=== PATIENT | male | born 1985 | race African-American/Black ===

== ENCOUNTER → 2018-10-24 11:06 | Outpatient (CLI) | payer MEDICAID, SELFPAY ==
[2018-10-24 10:35] VITALS: BMI 23.3
[2018-10-24 12:50] LABS: Absolute Lymphocyte Count 1.66 X10^3/ul (0.83-4.51); Absolute Neutrophil Count 2.7 X10^3/uL (2.0-7.7); Basophil# 0.03 X10^3/uL; Basophil% 0.5 % (0-1); Eosinophil# 0.65 X10^3/uL; Eosinophils% 11.7 % (0-5); Hematocrit 44.8 % (40-54); Hemoglobin 14.9 g/dl (13.0-16.5); Lymphocyte # 1.66 X10^3/ul (4.0); Lymphocyte % 29.8 % (19-41); Mean Corp Hgb Conc 33.3 g/gl (32-36); Mean Corpuscular Hgb 26.1 pg (27.0-32.0); Mean Corpuscular Volume 78.5 fL (80-94); Mean Platelet Vol. 9.5 fl (6.2-12.0); Monocyte# 0.58 X10^3/uL; Monocyte% 10.4 % (0-10); Neutrophil # 2.65 X10^3/uL (2.7-7.7); Neutrophil % 47.6 % (47-70); Platelet Count 235 K/mm3 (150-450); RBC Distribution Width CV 16.3 % (11.6-14.6); RBC Distribution Width SD 46.6 fl (35.1-43.9); Red Blood Count 5.71 M/mm3 (4.6-6.2); White Blood Count 5.6 K/mm3 (4.4-11.0)
[2018-10-24 12:55] LABS: POSITIVE COUNT NO; POSITIVE DIFFERENTIAL NO; POSITIVE MORPHOLOGY NO
[2018-10-24 13:11] LABS: ALB/GLOB Ratio 1.3 RATIO (0.9-2.4); AST(SGOT) 20 U/L (15-37); Alanine Aminotransfer ALT/SGPT 24 U/L (16-61); Albumin, Serum 4.2 g/dL (3.2-5.0); Alkaline Phosphatase 70 U/L (45-117); Anion Gap 5 (5-15); BUN 9 mg/dL (7-18); BUN/Creat Ratio 9.6 RATIO (10-20); Calcium,Total 8.9 mg/dL (8.5-10.1); Chloride 108 mmol/L (98-107); Creatinine, Serum 0.94 mg/dL (0.70-1.30); EST Glomerular Filtration Rate 97 mL/min (>60); Est Glom Filt Rate - Afr Amer 117 mL/min (>60); Globulin 3.2 g/dL (2.2-4.2); Glucose 96 mg/dL (74-106); Potassium 3.8 mmol/L (3.5-5.1); Protein, Total 7.4 g/dL (6.4-8.2); Sodium Level 139 mmol/L (136-145)
[2018-10-24 13:49] LABS: HIV - WCH Non-Reactive (Nonreactive)
== END ==
LOC: EPLAB 11:06 → BIMLAB 10-27 08:54
PROVIDERS: Family Provider Internal Medicine; PCP Internal Medicine; Visit Provider Internal Medicine
DX: Z20.6 Contact with and (suspected) exposure to human immunodeficiency virus [HIV] (principal); R10.9 Unspecified abdominal pain; J45.909 Unspecified asthma, uncomplicated
CPT/HCPCS: 36415; 80053; 85025; 86703

== ENCOUNTER → 2022-05-25 | Outpatient (CLI) | payer MEDICAID, SELFPAY ==
[2022-05-25 14:34] LABS: Absolute Lymphocyte Count 1.01 X10^3/uL (0.83-4.51); Absolute Neutrophil Count 4.2 X10^3/uL (2.0-7.7); Basophil# 0.04 X10^3/uL; Basophil% 0.7 % (0-1); Eosinophil# 0.02 X10^3/uL; Eosinophils% 0.4 % (0-5); Hematocrit 42.2 % (40-54); Hemoglobin 13.5 g/dL (13.0-16.5); Lymphocyte # 1.01 X10^3/ul (0.83-4.51); Lymphocyte % 17.9 % (19-41); Mean Corpuscular Hgb 24.2 pg (27.0-32.0); Mean Corpuscular Volume 75.5 fL (80-94); Mean Platelet Vol. 8.9 fl (6.2-12.0); Monocyte% 5.3 % (0-10); NRBC Flagged by Analyzer 0 % (0-5); Neutrophil # 4.22 X10^3/uL (2.7-7.7); Platelet Count 324 K/mm3 (150-450); RBC Distribution Width CV 19.3 % (11.6-14.6); Red Blood Count 5.59 M/mm3 (4.6-6.2); White Blood Count 5.6 K/mm3 (4.4-11.0)
[2022-05-25 14:38] LABS: Erythrocyte Sedimentation Rate 5 mm/hr (0-20)
[2022-05-25 15:21] LABS: Hemoglobin A1c 5.4 % (3.8-5.6)
[2022-05-25 15:25] LABS: ALB/GLOB Ratio 1.1 RATIO (0.9-2.4); AST(SGOT) 13 U/L (15-37); Alanine Aminotransfer ALT/SGPT 26 U/L (16-61); Albumin, Serum 3.9 g/dL (3.2-5.0); Alkaline Phosphatase 57 U/L (45-117); Amylase 78 U/L (25-115); Anion Gap 6 (5-15); BUN 13 mg/dL (7-18); BUN/Creat Ratio 14.7 RATIO (10-20); CRP < 2.90 mg/L (0.0-3.0); Calcium,Total 9.2 mg/dL (8.5-10.1); Chloride 108 mmol/L (98-107); Creatinine, Serum 0.88 mg/dL (0.70-1.30); EST Glomerular Filtration Rate 102 mL/min (>60); Est Glom Filt Rate - Afr Amer 123 mL/min (>60); Ferritin 4 ng/mL (26-388); Free T3 2.8 pg/mL (2.18-3.98); Globulin 3.4 g/dL (2.2-4.2); Glucose 116 mg/dL (74-106); LDH 160 U/L (87-241); Lipase 120 U/L (73-393); Potassium 3.7 mmol/L (3.5-5.1); Protein, Total 7.3 g/dL (6.4-8.2); Sodium Level 141 mmol/L (136-145); T4 Free Direct 0.74 ng/dL (0.76-1.46); Thyroid Stim Hormone (TSH) 1.48 uIU/mL (0.358-3.74)
[2022-05-28 13:07] LABS: Anti-Centromere B Ab <0.2 AI (0.0-0.9); Anti-Chromatin <0.2 AI (0.0-0.9); Anti-Jo <0.2 AI (0.0-0.9); Anti-Scleroderma-70 AB <0.2 AI (0.0-0.9); RNP Ab 0.5 AI (0.0-0.9); SJOGREN'S Anti-SS-A test < 0.2 AI (0.0-0.9); SJOGREN'S Anti-SS-B test < 0.2 AI (0.0-0.9); Smith Ab <0.2 AI (0.0-0.9)
[2022-05-28 15:08] LABS: Endomysial Antibody IgA Negative (Negative)
[2022-05-28 17:01] LABS: Immunoglobulin A 235 mg/dL (90-386); t-Transglutaminase IgA <2 U/mL (0-3)
[2022-05-28 17:36] LABS: Anti-dsDNA Ab 1 IU/mL (0-9)
[2022-06-01 00:06] LABS: Cytoplasmic Ab (C-ANCA) <1:20 titer (Neg:<1:20); Immunoglobulin A 223 mg/dL (90-386); Immunoglobulin E 935 IU/mL (6-495); Immunoglobulin G 888 mg/dL (603-1613); Immunoglobulin M 159 mg/dL (20-172)
[2022-06-01 08:52] LABS: Perinuclear Ab (P-ANCA) <1:20 titer (Neg:<1:20)
== END | disposition home or self-care (01) ==
LOC: LAB 13:56
PROVIDERS: PCP Podiatrist; Referring Provider Internal Medicine Gastroenterology; Visit Provider Internal Medicine Gastroenterology
DX: R10.9 Unspecified abdominal pain (principal); J45.909 Unspecified asthma, uncomplicated
CPT/HCPCS: 36415; 80053; 82150; 82728; 82784; 82785; 83036; 83516; 83615; 83690; 84439; 84443; 84481; 85025; 85652; 86140; 86225; 86235; 86255; 86256

== ENCOUNTER → 2022-05-29 | Outpatient (CLI) | payer MEDICAID, SELFPAY ==
[2022-06-06 13:06] LABS: Pancreatic Elastase, Fecal < 50 (>200)
== END | disposition home or self-care (01) ==
LOC: LABSPEC 15:34
PROVIDERS: PCP Podiatrist; Visit Provider Internal Medicine Gastroenterology
DX: K58.9 Irritable bowel syndrome, unspecified (principal); R10.9 Unspecified abdominal pain; J45.909 Unspecified asthma, uncomplicated
CPT/HCPCS: 82653; 82705; 83630; 83993; 87177; 87209; 87329; 87493; 87506

== ENCOUNTER → 2022-06-20 | Outpatient (CLI) | payer MEDICAID, SELFPAY ==
[2022-06-22 16:08] LABS: Albumin 3.9 g/dL (2.9-4.4); Alpha-1-Globulins 0.2 g/dL (0.0-0.4); Alpha-2-Globulins 0.5 g/dL (0.4-1.0); Gamma Globulin 0.9 g/dL (0.4-1.8); Immunoglobulin A 219 mg/dL (90-386); Immunoglobulin G 868 mg/dL (603-1613); Immunoglobulin M 156 mg/dL (20-172); PROEL- TOTAL PROTEIN 6.6 g/dL (6.0-8.5)
[2022-06-22 20:52] LABS: IMMUNOFIXATION RESULT,S Comment: (.)
== END | disposition home or self-care (01) ==
LOC: LAB 14:19
PROVIDERS: PCP Podiatrist; Visit Provider Internal Medicine Gastroenterology
DX: R10.9 Unspecified abdominal pain (principal); J45.909 Unspecified asthma, uncomplicated
CPT/HCPCS: 82784; 84165; 86334

== ENCOUNTER 2022-07-25 07:47 | Day surgery (SDC) | payer MEDICAID, SELFPAY ==
--- NOTE | 2022-07-25 | GASB_PTH ---
PATIENT: MATEO PEDERSON LUCIANA LOC: EN U#:[id number] AGE/SX: 37/M ROOM: RE07/25/[address]: Dr. Sylvain Vilchis DO : 1985 BED: DIS: 07/25/2022 SPEC #: [id number] RECD: 07/25/22 13:05 STATUS: IRENE ASPEN #: [id number] CANDIDA: 07/25/22 00:[address]: Sylvain Vilchis DEPT: SURGICAL PATHOLOGY RECD BY: Dewayne Ji ENTERED: 07/25/22 13:06 SP TYPE: Gastric Bx BISI DR: Dr. Rich Naik, [facility] Tissues: A - Duodenum, NOS B - Gastric mucous membrane C - Esophageal mucous membrane D - COLON BIOPSY Procedures: Surgery Specimen Level IV HEADER OPERATION: Colonoscopy, EGD ([facility]) with biopsies PRE-OP DIAGNOSIS: Abdominal pain, asthma, diarrhea TISSUE SUBMITTED: A ? Duodenum biopsy, B ? Gastric body biopsy, C ? Random esophagus biopsy, D ? Random colon biopsies MICROSCOPIC DIAGNOSIS A. Duodenum, biopsy: Fragments of duodenal mucosa, no pathologic diagnosis. B. Gastric body, biopsy: Moderate gastritis. See microscopic description and comment. C. Esophagus, random biopsy: Fragments of squamous mucosa with changes consistent with eosinophilic esophagitis. Mild chronic inflammation. See comment. D. Colon, random biopsy: Fragments of colonic mucosa, no pathologic diagnosis. SJ:rayray 07/26/2022 COMMENT B. The results of immunohistochemistry for Helicobacter pylori will be reported separately ([id number]). C. Increased number of eosinophils more than 20 per high power field are noted consistent with eosinophilic esophagitis. Correlation with clinical, endoscopic findings and appropriate follow up are necessary. MICROSCOPIC DESCRIPTION Slides are reviewed. The specimen shows fragments of gastric mucosa with chronic inflammatory cell infiltrates in the lamina propria consisting of lymphocytes and plasma cells, consistent with moderate chronic gastritis. GROSS DESCRIPTION A - Received in fixative is one container labeled with the patient's name and designated duodenum biopsy. The specimen consists of two irregular fragments of light tate soft tissue that in aggregate measure 0.5 x 0.5 x 0.1 cm. The specimen is totally submitted in one cassette. B - Received in fixative is one container labeled with the patient's name and designated gastric body. The specimen consists of two irregular fragments of light tate soft tissue that in aggregate measure 0.5 x 0.5 x 0.1 cm. The specimen is totally submitted in one cassette. C - Received in fixative is one container labeled with the patient's name and designated random esophagus biopsy. The specimen consists of multiple irregular fragments of light tate soft tissue that in aggregate measure 1 x 0.5 x 0.1 cm. The specimen is totally submitted in one cassette. D - Received in fixative is one container labeled with the patient's name and designated random colon biopsy. The specimen consists of multiple irregular fragments of light tate soft tissue that in aggregate measure 1.2 x 0.6 x 0.1 cm. The specimen is totally submitted in one cassette. / AM:rayray 07/25/2022 TC:3 CPT: 79333 x4
[2022-07-25] MEDS: Lactated Ringers 1,000 ML 15 ML IV (08:00)
--- NOTE | 2022-07-25 08:09 | HP.PCM_ITS ---
History and Physical Date of Admission: 07/25/22 7 M who presents to the office today for Initial consult. Crystal established with this clinic 05.25.22 with referral from PCP for evaluation of abdominal pain that transitions through his upper abdomen with sitting, nausea and dysphagia since early 1999?s and occurs at least once a month with periods of increased frequency; periodic bloody stools. He has seen several specialists for this; previously told he is getting bowel obstructions. He previously presented to ED and reports admission for approximately 3 days. History of bowel obstruction ? first one he was told it was a freak accident; the second he was incarcerated and did not receive much information. He is unsure about the amount of small bowel was removed. Current BM pattern is 4-5 times a day without difficulty. FH includes cousin with Crohn?s. CT abd/pel 08.13.21 without contrast Ry noting moderate acute uncomplicated appendicitis with obstructive appendicolith, appendiceal wall integrity not well evaluated. ROS Const Constitutional: No anorexia, fatigue, fever(s), weight change or sleep problems Eyes Eyes: No change in vision ENT ENT: No abnormal hearing, difficulty swallowing, mouth lesions, tongue swelling or throat swelling Resp Respiratory: No cough or shortness of breath Cardio Cardiology: No chest pain at rest, chest pain with exertion, shortness of breath or dyspnea on exertion Gastro GI: No difficulty swallowing Genitourinary Male: No difficulty urinating or burning urination Musc Musculoskeletal: No joint pain, joint swelling, muscle weakness or decreased muscle mass Skin Skin: No hair loss in leg, yellowing of the eye, itchy eyes, rash, skin ulcer or skin swelling Neuro Neurology: No abnormal hearing, abnormal movements, confusion, unsteady gait/balance or memory loss Psych Psychiatric: No anxiety, No confusion and No memory loss Endo Endocrine: No fatigue or weight change Aller/Imm Allergy/Immunologic: No itchy eyes, throat swelling or tongue swelling Elpidio/Lymp Hematologic/Lymphatic: No easy bleeding, easy bruising or enlarged lymph nodes Exam Const General: cooperative and comfortable Nutritional Appearance: average body habitus and well nourished [facility] Head: normal to inspection Ears: hearing grossly normal bilaterally Nose: external nose normal Face and sinus: normal facial exam Mouth: oral mucosae normal Throat: posterior oropharynx normal Eyes General: appearance normal, both eyes and all related structures Neck Neck: normal visual inspection Chest Chest palpation & inspection: normal inspection of the chest and normal palpation of entire chest wall Resp Effort & Inspection: normal respiratory effort Auscultation: Bilateral: Clear to Auscultation Cardio Palpation: normal PMI Rate: regular rate Rhythm: regular rhythm GI Inspection: normal to inspection Auscultation: normal bowel sounds Percussion: normal to percussion Palpation: no hepatosplenomegaly Skin General: no rashes or lesions noted Neuro General: patient alert Extrem General: normal to inspection Psych Affect: normal affect Quality Reporting Tobacco Screening ([facility] 138) Smoking Status: Current every day smoker Assessment and Plan Assessment and Plan (1) Abdominal pain: ?Status:?Chronic ?Plan: Differential diagnosis for abdominal pain in the setting of frequent diarrhea could include a small bowel Crohn's disease, celiac disease, superior mesenteric artery disease ,gastroparesis ,intestinal angina small bowel vasculitis..? Small bowel follow-through.? He does have an IV contrast allergy so we cannot get a CT enterography or MR enterography.? He may need agile capsule followed by way of video capsule endoscopy.? He will get an ESR, CRP, fecal analysis for inflammation.? We will also get stool studies.? With his history of asthma eosinophilic diseases of the small bowel diagnosis including, eosinophilic gastroenteritis, celiac disease.? He will undergo an upper and lower endoscopy to evaluate his upper lower GI tract.? He will also undergo biochemical for autoimmune diseases. (2) Asthma: ?Status:?Chronic (3) Diarrhea: ?Status:?Acute ?Plan: The differential diagnosis for his diarrhea does include secretory versus osmotic diarrhea.? He is presenting more like a secretory diarrhea due to the fact that it does not vary with oral intake and he has had nocturnal diarrhea.? He will undergo stool testing along with colonoscopy with evaluation of his ter emanuel ileum.? We will be able to better give him a differential diagnosis once his work-up is complete. ? ? ? Orders: Orders Comprehensive Metabolic Profil Today J45.909 - Unspecified asthma, uncomplicated, R10.9 - Unspecified abdominal pain ? CRP Today J45.909 - Unspecified asthma, uncomplicated, R10.9 - Unspecified abdominal pain ? LDH Today J45.909 - Unspecified asthma, uncomplicated, R10.9 - Unspecified abdominal pain ? CBC W/Diff, Automated Today J45.909 - Unspecified asthma, uncomplicated, R10.9 - Unspecified abdominal pain ? Erythrocyte Sed Rate Today 45.90 - Unspecified asthma, uncomplicated, R10.9 - Unspecified abdominal pain ? ROMMEL Comprehensive Panel Today R10.9 - Unspecified abdominal pain ? Calprotectin, Stool Today R10.9 - Unspecified abdominal pain ? Stool Lactoferrin/WBC Today 45.90 - Unspecified asthma, uncomplicated, R10.9 - Unspecified abdominal pain ? ANCA Today [facility].90 - Unspecified asthma, uncomplicated, R10.9 - Unspecified abdominal pain ? Celiac Disease Profile Today [facility].90 - Unspecified asthma, uncomplicated, R10.9 - Unspecified abdominal pain ? Immunoglobulins G/A/M/E Today [facility] - Unspecified asthma, uncomplicated, R10.9 - Unspecified abdominal pain ? ROSANNA + Protein Elect, Serum Today [facility].90 - Unspecified asthma, uncomplicated, R10.9 - Unspecified abdominal pain ? Ferritin Today [facility].90 - Unspecified asthma, uncomplicated, R10.9 - Unspecified abdominal pain ? Thyroid Stim Hormone (TSH) Today [facility].90 - Unspecified asthma, uncomplicated, R10.9 - Unspecified abdominal pain ? Hemoglobin A1c Today [facility].90 - Unspecified asthma, uncomplicated, R10.9 - Unspecified abdominal pain ? Free T3 Today [facility].90 - Unspecified asthma, uncomplicated, R10.9 - Unspecified abdominal pain ? T4 Free Direct Today [facility] - Unspecified asthma, uncomplicated, R10.9 - Unspecified abdominal pain ? Fecal Fat, Qualitative Today [facility].90 - Unspecified asthma, uncomplicated, R10.9 - Unspecified abdominal pain ? OVA+PARA w/Giardia EIA [id number] Today [facility].90 - Unspecified asthma, uncomplicated, R10.9 - Unspecified abdominal pain ? CDIFF (PCR) Today [facility].90 - Unspecified asthma, uncomplicated, R10.9 - Unspecified abdominal pain ? ENTERIC PATHOGEN PANEL STOOL Today [facility].90 - Unspecified asthma, uncomplicated, K58.9 - Irritable bowel syndrome without diarrhea, R10.9 - Unspecified abdominal pain ? Pancreatic Elastase, Fecal Today [facility].90 - Unspecified asthma, uncomplicated, R10.9 - Unspecified abdominal pain ? Amylase Today J45.909 - Unspecified asthma, uncomplicated, R10.9 - Unspecified abdominal pain ? Lipase Today J45.909 - Unspecified asthma, uncomplicated, R10.9 - Unspecified abdominal pain ? I have examined the patient and the H&P has been reviewed. There are no clinical changes since date of exam.
[2022-07-25 08:17] VITALS: BP 116/83; PULSE 73; RESP 18; TEMP 37.1; O2SAT 98; BMI 12.1
--- NOTE | 2022-07-25 08:45 | IMM_PTH ---
PATIENT: MATEO PEDERSON LOC: EN U#:[id number] AGE/SX: 37/M ROOM: RE07/25/[address]: Dr. Sylvain Vilchis DO : 1985 BED: DIS: 07/25/2022 SPEC #: [id number] RECD: 07/25/22 13:33 STATUS: IRENE REQ #: [id number] CANDIDA: 07/25/22 08:[address]: Sylvain Vilchis DEPT: IMMUNOHISTOCHEMISTRY RECD BY: Oriana Diallo ENTERED: 07/25/22 13:33 SP TYPE: IMMUNO OTHR DR: Dr. Rich Naik, [facility] Tissues: B - Stomach, NOS Procedures: H Pylori (initial) PHYSICIAN & INSTITUTION [place] [id number] SPECIMEN INFORMATION: Tissue Source: B ? Gastric body Clinical Info: Abdominal pain, asthma, diarrhea Specimen Number: [id number] CPT code: 04873 METHODOLOGY: Deparaffinized sections of prefer/formalin-fixed tissue or PAP/DQ stained slides are incubated with monoclonal/polyclonal antibodies/oligonucleotide probes. Localization is made via biotin free immunoperoxidase method. Appropriate controls are performed and reacted as expected. Results on target cell population are indicated in the following table: RESULTS: ANTIBODY / CLONE RESULT Block B H Pylori (polyclonal) positive These tests were developed and their performance characteristics determined by [facility]. They may not have been cleared or approved by the U.S. Food and Drug Administration. The FDA has determined that such clearance or approval is not necessary. The above immunohistochemical/dualISH markers are ordered and reviewed by the Pathologist. INTERPRETATION: B. Gastric body, biopsy: Positive for numerous Helicobacter pylori organisms. SJ:rayray 07/26/2022
[2022-07-25 09:15] VITALS: BP 114/78; BP 116/83; PULSE 94; RESP 16; TEMP 36.4; O2SAT 98
--- NOTE | 2022-07-25 09:17 | OP.EGD_ITS ---
Patient Name: Crystal Rodriguez Procedure Date: 07/25/2022 8:38 AM Date of : 1985 Age: 37 Procedure: Upper GI endoscopy Indications: Epigastric abdominal pain, Dysphagia Providers: Sylvain Vilchis DO Medicines: Monitored Anesthesia Care Patient Profile: This is a 37 year old male. Refer to note in patient chart for documentation of history and physical. Patient has symptoms of chronic epigastric abdominal pain and dysphagia with solids. Complications: No immediate complications. Procedure: Pre-Anesthesia Assessment: - Prior to the procedure, a History and Physical was performed, and patient medications and allergies were reviewed. The patient is competent. The risks and benefits of the procedure and the sedation options and risks were discussed with the patient. All questions were answered and informed consent was obtained. Patient identification and proposed procedure were verified by the physician in the pre-procedure area. Mental Status Examination: alert and oriented. Airway Examination: normal oropharyngeal airway and neck mobility. Respiratory Examination: clear to auscultation. Prophylactic Antibiotics: The patient does not require prophylactic antibiotics. Prior Anticoagulants: The patient has taken no previous anticoagulant or antiplatelet agents. ASA Grade Assessment: II - A patient with mild systemic disease. After reviewing the risks and benefits, the patient was deemed in satisfactory condition to undergo the procedure. The anesthesia plan was to use monitored anesthesia care (MAC). Immediately prior to administration of medications, the patient was re-assessed for adequacy to receive sedatives. The heart rate, respiratory rate, oxygen saturations, blood pressure, adequacy of pulmonary ventilation, and response to care were monitored throughout the procedure. The physical status of the patient was re-assessed after the procedure. After obtaining informed consent, the endoscope was passed under direct vision. Throughout the procedure, the patient's blood pressure, pulse, and oxygen saturations were monitored continuously. The pediatric colonoscope was introduced through the mouth, and advanced to the second part of duodenum. The upper GI endoscopy was accomplished without difficulty. The patient tolerated the procedure well. Scope In: 8:46:34 AM Scope Out: 8:52:04 AM Total Procedure Duration Time 0 hours 5 minutes 30 seconds Findings: Mucosal changes including ringed esophagus and small-caliber esophagus were found in the middle third of the esophagus and in the lower third of the esophagus. Biopsies were obtained from the proximal and distal esophagus with cold forceps for histology of suspected eosinophilic esophagitis. Verification of patient identification for the specimen was done. Estimated blood loss was minimal. A moderate Schatzki ring was found in the lower third of the esophagus. A guidewire was placed and the scope was withdrawn. Dilation was performed with a Savary dilator with no resistance at 45 Fr. The dilation site was examined and showed moderate improvement in luminal narrowing. Estimated blood loss was minimal. No gross lesions were noted in the entire examined stomach. Biopsies were taken with a cold forceps for histology. Verification of patient identification for the specimen was done. Estimated blood loss was minimal. No gross lesions were noted in the second portion of the duodenum. Biopsies were taken with a cold forceps for histology. Verification of patient identification for the specimen was done. Estimated blood loss was minimal. Impression: - Esophageal mucosal changes consistent with eosinophilic esophagitis. Biopsied. - Moderate Schatzki ring. Dilated. - No gross lesions in the stomach. Biopsied. - No gross lesions in the second portion of the duodenum. Biopsied. Recommendation: - Discharge patient to home. - Resume previous diet. - Continue present medications. - Await pathology results. Procedure Code(s): --- Professional --- 91117, Esophagogastroduodenoscopy, flexible, transoral; with insertion of guide wire followed by passage of dilator(s) through esophagus over guide wire 61206, 59, Esophagogastroduodenoscopy, flexible, transoral; with biopsy, single or multiple CPT copyright 2017 [employer]. All rights reserved. The codes documented in this report are preliminary and upon information coder review may be revised to meet current compliance requirements. Sylvain Vilchis DO 07/25/2022 9:16:31 AM This report has been signed electronically. Number of Addenda: 0 Note Initiated On: 07/25/2022 8:38 AM
--- NOTE | 2022-07-25 09:17 | OP.CCLET_ITS ---
07/25/2022 Rich Naik Dpm Re : Upper GI endoscopy procedure for Crystal Rodriguez Dear Dr. Naik This procedure was performed on Monday, July 25, 2022. My impressions and recommendations are as follows: Impressions : - Esophageal mucosal changes consistent with eosinophilic esophagitis. Biopsied. - Moderate Schatzki ring. Dilated. - No gross lesions in the stomach. Biopsied. - No gross lesions in the second portion of the duodenum. Biopsied. Recommendations : - Discharge patient to home. - Resume previous diet. - Continue present medications. - Await pathology results. My findings are described in the full procedure note, which is enclosed. If I can be of further assistance, please feel free to contact me at . Sincerely, Sylvain Vilchis, 07/25/2022 9:16:31 AM This report has been signed electronically.
[2022-07-25 09:20] VITALS: BP 105/78; BP 116/83; PULSE 78; RESP 16; O2SAT 99
--- NOTE | 2022-07-25 09:20 | OP.COLON_ITS ---
Patient Name: Crystal Rodriguez Procedure Date: 07/25/2022 8:52 AM Date of : 1985 Age: 37 Procedure: Colonoscopy Indications: Generalized abdominal pain, Chronic diarrhea Providers: Sylvain Vilchis DO Medicines: Monitored Anesthesia Care Patient Profile: This is a 37 year old male. Refer to note in patient chart for documentation of history and physical. Patient has symptoms of chronic epigastric abdominal pain and dysphagia with solids. Last Colonoscopy: none. The patient's first colonoscopy is today. Complications: No immediate complications. Procedure: Pre-Anesthesia Assessment: - Prior to the procedure, a History and Physical was performed, and patient medications and allergies were reviewed. The patient is competent. The risks and benefits of the procedure and the sedation options and risks were discussed with the patient. All questions were answered and informed consent was obtained. Patient identification and proposed procedure were verified by the physician in the pre-procedure area. Mental Status Examination: alert and oriented. Airway Examination: normal oropharyngeal airway and neck mobility. Respiratory Examination: clear to auscultation. Prophylactic Antibiotics: The patient does not require prophylactic antibiotics. Prior Anticoagulants: The patient has taken no previous anticoagulant or antiplatelet agents. ASA Grade Assessment: II - A patient with mild systemic disease. After reviewing the risks and benefits, the patient was deemed in satisfactory condition to undergo the procedure. The anesthesia plan was to use monitored anesthesia care (MAC). Immediately prior to administration of medications, the patient was re-assessed for adequacy to receive sedatives. The heart rate, respiratory rate, oxygen saturations, blood pressure, adequacy of pulmonary ventilation, and response to care were monitored throughout the procedure. The physical status of the patient was re-assessed after the procedure. After I obtained informed consent, the scope was passed under direct vision. Throughout the procedure, the patient's blood pressure, pulse, and oxygen saturations were monitored continuously. The colonoscope was introduced through the anus and advanced to the terminal ileum. The colonoscopy was performed without difficulty. The patient tolerated the procedure well. The quality of the bowel preparation was good. Scope In: 8:55:47 AM Scope Withdrawal Time 0 hours 11 minutes 1 second Scope Out: 9:10:31 AM Total Procedure Duration Time 0 hours 14 minutes 44 seconds Findings: The perianal and digital rectal examinations were normal. An area of mildly congested mucosa was found in the sigmoid colon, at the hepatic flexure and in the cecum. Biopsies were taken with a cold forceps for histology. Verification of patient identification for the specimen was done. Estimated blood loss was minimal. The terminal ileum appeared normal. Impression: - Congested mucosa in the sigmoid colon, at the hepatic flexure and in the cecum. Biopsied. - The examined portion of the ileum was normal. Recommendation: - Discharge patient to home. - Resume previous diet. - Continue present medications. - Await pathology results. - Repeat colonoscopy in 10 years for screening purposes. Procedure Code(s): --- Professional --- 17805, Colonoscopy, flexible; with biopsy, single or multiple CPT copyright 2017 [employer]. All rights reserved. The codes documented in this report are preliminary and upon coil cutter review may be revised to meet current compliance requirements. Sylvain Vilchis DO 07/25/2022 9:20:09 AM This report has been signed electronically. Number of Addenda: 0 Note Initiated On: 07/25/2022 8:52 AM
--- NOTE | 2022-07-25 09:21 | OP.CCLET_ITS ---
07/25/2022 Rich Naik Dpm Re : Colonoscopy procedure for Crystal Rodriguez Dear Dr. Naik This procedure was performed on Monday, July 25, 2022. My impressions and recommendations are as follows: Impressions : - Congested mucosa in the sigmoid colon, at the hepatic flexure and in the cecum. Biopsied. - The examined portion of the ileum was normal. Recommendations : - Discharge patient to home. - Resume previous diet. - Continue present medications. - Await pathology results. - Repeat colonoscopy in 10 years for screening purposes. My findings are described in the full procedure note, which is enclosed. If I can be of further assistance, please feel free to contact me at . Sincerely, Sylvain Vilchis, 07/25/2022 9:20:09 AM This report has been signed electronically.
[2022-07-25 09:25] VITALS: BP 107/73; BP 116/83; PULSE 82; RESP 16; O2SAT 100
[2022-07-25 09:30] VITALS: BP 110/88; BP 116/83; PULSE 84; RESP 16; TEMP 36.4; O2SAT 99
[2022-07-25 09:44] VITALS: BP 116/83
== END 2022-07-25 09:52 | disposition home or self-care (01) ==
LOC: EN 07:49 → AC 07:51
PROVIDERS: PCP Podiatrist; Referring Provider Podiatrist; Visit Provider Internal Medicine Gastroenterology
PROC: 0DJD8ZZ Inspection of Lower Intestinal Tract, Via Natural or Artificial Opening Endoscopic (ICD-10-PCS; CPT 45378; principal; 2022-07-25 08:40)
DX: K22.2 Esophageal obstruction (principal); K29.70 Gastritis, unspecified, without bleeding; K20.90 Esophagitis, unspecified without bleeding; B96.81 Helicobacter pylori [H. pylori] as the cause of diseases classified elsewhere; K63.89 Other specified diseases of intestine; R13.10 Dysphagia, unspecified; G89.29 Other chronic pain; J45.909 Unspecified asthma, uncomplicated; F17.200 Nicotine dependence, unspecified, uncomplicated; Z79.899 Other long term (current) drug therapy
CPT/HCPCS: 43248; 43239; 45380; 88305; 88342; J7120; J2405

== ENCOUNTER → 2022-08-07 | Outpatient (CLI) | payer MEDICAID, SELFPAY ==
[2022-08-14 00:07] LABS: Beef 0.15 kU/L (Class 0/I); Corn 8.48 kU/L (Class IV); Egg, Whole 0.12 kU/L (Class 0/I); Milk (Cow) 0.26 kU/L (Class 0/I); Pork 0.28 kU/L (Class 0/I); Soybean 5.28 kU/L (Class IV); Wheat 7.06 kU/L (Class IV)
[2022-08-14 08:53] LABS: Chocolate 0.14 kU/L (Class 0/I)
== END | disposition home or self-care (01) ==
LOC: LAB 16:01
PROVIDERS: PCP Podiatrist; Visit Provider Internal Medicine Gastroenterology
DX: A04.8 Other specified bacterial intestinal infections (principal)
CPT/HCPCS: 36415; 86003; 86005

== ENCOUNTER → 2022-08-22 | Outpatient (CLI) | payer MEDICAID, SELFPAY ==
[2022-08-23 09:46] LABS: HIV - WCH Non-Reactive (Nonreactive)
[2022-08-30 01:07] LABS: Chicken 0.22 kU/L (Class 0/I); Crab 1.75 kU/L (Class III); Egg, Whole 0.19 kU/L (Class 0/I); Lobster 0.69 kU/L (Class II); Potato, White 9.14 kU/L (Class IV); Salmon 0.12 kU/L (Class 0/I); Tuna 0.13 kU/L (Class 0/I); Yeast 0.47 kU/L (Class I)
[2022-08-30 23:01] LABS: Turkey 0.11 kU/L (Class 0/I)
== END | disposition home or self-care (01) ==
PROVIDERS: PCP Family Medicine; Visit Provider Otolaryngology
DX: T78.40XA Allergy, unspecified, initial encounter (principal); Z11.4 Encounter for screening for human immunodeficiency virus [HIV]
CPT/HCPCS: 36415; 86003; 86703

== ENCOUNTER → 2022-12-05 | Outpatient (CLI) | payer MEDICAID, SELFPAY | END | disposition home or self-care (01) | PROVIDERS: PCP Family Medicine; Referring Provider Nurse Practitioner Adult Health; Visit Provider Nurse Practitioner Adult Health | DX: R10.9 Unspecified abdominal pain (principal); Z87.19 Personal history of other diseases of the digestive system | CPT/HCPCS: 36415 ==

== ENCOUNTER → 2023-01-16 | Outpatient (CLI) | payer MEDICAID, SELFPAY ==
--- NOTE | 2023-01-16 10:16 | US_ITS ---
STUDY: ABDOMINAL ULTRASOUND REASON FOR EXAM: Male, 37 years old. Chronic generalized abdominal pain. TECHNIQUE: Transabdominal ultrasound was performed with real-time and static banks scale imaging. TECHNICAL QUALITY: Adequate. COMPARISON: None. FINDINGS: Liver: The liver measures 16.9 cm. There is normal echogenicity of the liver. The bile ducts are within normal limits. There is hepatic color flow. The direction of portal flow is hepatopetal. There is no demonstrated mass lesion. Gallbladder: Normal distended gallbladder. The gallbladder wall measures 1.9 mm. There is a negative sonographic Nowak''s sign. There is no pericholecystic fluid. There are no gallstones. Common Bile Duct (C.B.D.): The common bile duct measures 3.5 mm. Pancreas: Normal size of the head, body and tail of the pancreas. There is normal echogenicity of the pancreas. There is no demonstrated pancreatic mass or cyst. Spleen: Normal size of the spleen. The spleen measures 8.7 cm x 3.7 cm x 3.4 cm. Right Kidney: Normal size of the right kidney. The right kidney measures 10.7 cm x 5.8 cm x 5.9 cm. Normal renal cortex. The right cortex measures 1.6 cm. There is no demonstrated renal mass or cyst. There is no right hydronephrosis. Left Kidney: Normal size of the left kidney. The left kidney measures 10.4 cm x 6.3 cm x 5.4 cm. Normal renal cortex. The left cortex measures 2 cm. There is no demonstrated renal mass or cyst. There is no left hydronephrosis. Aorta: Unremarkable I.V.C.: The IVC is patent. There is no ascites. US/Abdomen Complete IMPRESSION: Normal abdominal ultrasound examination. Electronically Signed: Rodrigo Jones MD at 15:18 EDT ,
== END | disposition home or self-care (01) ==
PROVIDERS: PCP Family Medicine; Referring Provider Internal Medicine Gastroenterology; Visit Provider Internal Medicine Gastroenterology
DX: R10.9 Unspecified abdominal pain (principal); Z87.19 Personal history of other diseases of the digestive system
CPT/HCPCS: 76700

== ENCOUNTER → 2023-01-29 | Outpatient (CLI) | payer MEDICAID, SELFPAY ==
--- NOTE | 2023-01-29 11:56 | MRI_ITS ---
MR Enterography Abdomen/Pelvis WO/W Contrast 01/29/2023 1:02 PM COMPARISON: None available. CLINICAL HISTORY: SMALL BOWEL OBSTRUCTIONS, PAIN TECHNIQUE: Following oral administration of enteric contrast and administration of glucagon, multiplanar T1 and T2 weighted images along with dynamic post-gadolinium images were obtained through the abdomen and pelvis. FINDINGS: GI Tract: Multiple short segment loops of proximal small bowel demonstrate mild asymmetric wall thickening. There is questionable mild mucosal hyperenhancement. No stricture, fistula, or obstruction. No drainable fluid collections. Liver: Unremarkable Gallbladder: Unremarkable Spleen: Unremarkable Pancreas: Unremarkable Adrenal Glands: Unremarkable Kidneys: Unremarkable Reproductive: Unremarkable Bladder: Unremarkable Lymphadenopathy: Absent Ascites: Absent Bones: No suspicious lesions MRI/Enterography Abd/Pel IMPRESSION: Findings concerning for inflammatory, less likely infectious, enterocolitis. No stricture, fistula, or obstruction. No drainable fluid collections. Electronically Signed: Marco A Reyez MD at 0:28 EDT ,
[2023-01-29 12:11] VITALS: BP 111/64; PULSE 71; RESP 18; TEMP 36.7; O2SAT 97; BMI 25.8
[2023-01-29] MEDS: 0.9% Saline Lock 10 ML Syringe IV (12:25)
[2023-01-29] MEDS: Glucagon 1 MG/ML Syringe IV (13:29)
[2023-01-29 13:48] VITALS: BP 124/92; PULSE 62; RESP 16; O2SAT 99
== END | disposition home or self-care (01) ==
PROVIDERS: PCP Family Medicine
DX: K56.609 Unspecified intestinal obstruction, unspecified as to partial versus complete obstruction (principal)
CPT/HCPCS: 74183; 96374; A9575; A4216; J1610